=== PATIENT | male | born 1935 | race Caucasian/White ===

== ENCOUNTER 2019-05-21 06:50 | Inpatient (IN) ==
[2019-05-16 15:35] LABS: Appearance,Urine CLEAR; Bilirubin,Urine NEG (NEG); Color,Urine YELLOW; Culture Indicated,Urine NO; Glucose,Urine (UA) NEGATIVE (NEG); Ketones,Urine NEG (NEG); Leukocyte Esterase,Urine NEG /uL (NEG); Nitrate,Urine NEG (NEG); Protein,Urine NEG (NEG); Specific Gravity,Urine 1.017 (1.000-1.035); Urine Blood NEG mg/dL (<0.03); Urobilinogen,Urine NEG (NEG)
[2019-05-16 18:59] LABS: Basophils # (Auto) 0 K/mcL (0.0-0.3); Basophils % (Auto) 0.2 % (0.0-2.0); Eosinophils # (Auto) 0.4 K/mcL (0.0-0.7); Eosinophils % (Auto) 4.1 % (0.0-7.0); Granulocytes % (Auto) 62.7 % (38.0-78.0); Hematocrit 38.4 % (41.0-55.0); Hemoglobin 12.2 g/dL (13.5-16.5); Lymphocytes # (Auto) 2.3 K/mcL (1.5-4.8); Lymphocytes % (Auto) 21.9 % (15.5-49.0); Mean Cell Volume 101.6 fL (80.0-100.0); Mean Corpuscular HGB Conc 31.9 g/dL (31.0-36.0); Mean Platelet Volume 8.7 fL (7.4-10.4); Monocytes # (Auto) 1.2 K/mcL (0.1-0.9); Monocytes % (Auto) 11.1 % (1.0-12.0); Platelet Count 259 K/mcL (140-440); RBC 3.78 M/mcL (4.50-5.90); Red Cell Distribution Width 15.5 % (11.5-14.5); WBC 10.5 K/mcL (4.5-11.0)
[2019-05-16 19:00] LABS: Blood Urea Nitrogen 24 mg/dl (8-23); Calcium 9.4 mg/dl (8.6-10.4); Carbon Dioxide 25 mmol/L (22-30); Chloride 102 mmol/L (96-108); Glomerular Filtration Rate 51; Glucose 84 mg/dL (70-105)
[~2019-05-21 06:50] MED LIST: ACETAMINOPHEN 500 MG TABLET PO SCH; CELECOXIB 200 MG CAPSULE PO SCH; IPRATROPIUM/ALBUTEROL 3 ML AMPUL.NEB NEB PRN; PREGABALIN 75 MG CAPSULE PO SCH; SCOPOLAMINE 1 PATCH PATCH TOPICAL PRN; ceFAZolin 2 GM in DEXTROSE 5% IN WATER 50 ML IV SCH; oxyCODONE 10 MG TAB.ER.12H PO SCH
[2019-05-21] MEDS ORDERED: DEXAMETHASONE 10 MG/ML VIAL IV ONE (09:00)
[2019-05-21] MEDS ORDERED: LIDOCAINE HCL/PF 100 MG/5 ML SYRINGE IV ONE (09:00)
[2019-05-21] MEDS ORDERED: ePHEDrine 50 MG/ML AMPUL IV ONE (09:00)
[2019-05-21] MEDS ORDERED: fentaNYL 250 MCG/5 ML VIAL IV ONE (09:00)
[2019-05-21] MEDS ORDERED: ROPIVACAINE HCL/PF 30 ML VIAL IJ ONE (09:00)
[2019-05-21] MEDS ORDERED: PROPOFOL 200 MG/20 ML VIAL IV ONE (09:00)
[2019-05-21] MEDS ORDERED: SUCCINYLCHOLINE 20 MG/ML ML IV ONE (09:00)
[2019-05-21] MEDS ORDERED: TRANEXAMIC ACID 1,000 MG/10 ML VIAL IV ONE ×2 (09:00→10:11)
[2019-05-21] MEDS ORDERED: ONDANSETRON 4 MG/2 ML VIAL IV ONE (09:00)
[2019-05-21] MEDS ORDERED: fentaNYL 100 MCG/2 ML VIAL IV PRN (10:08)
[2019-05-21] MEDS ORDERED: NALOXONE HCL 0.4 MG/ML VIAL IV PRN (10:08)
[2019-05-21] MEDS ORDERED: PROMETHAZINE 25 MG/ML VIAL IV PRN (10:08)
[2019-05-21] MEDS ORDERED: LACTATED RINGERS 250 ML IV PRN (10:08)
[2019-05-21] MEDS ORDERED: diphenhydrAMINE 50 MG/ML VIAL IV PRN (10:08)
[2019-05-21] MEDS ORDERED: IPRATROPIUM/ALBUTEROL 3 ML AMPUL.NEB NEB PRN (10:08)
[2019-05-21] MEDS ORDERED: ONDANSETRON 4 MG/2 ML VIAL IV PRN ×2 (10:08→10:11)
[2019-05-21] MEDS ORDERED: MEPERIDINE 25 MG/ML SYRINGE IV PRN (10:08)
[2019-05-21] MEDS ORDERED: ACETAMINOPHEN 325 MG TABLET PO PRN (10:11)
[2019-05-21] MEDS ORDERED: BENZOCAINE/MENTHOL 1 LOZENGE PO PRN (10:11)
[2019-05-21] MEDS ORDERED: POLYETHYLENE GLYCOL 3350 17 GM PACKET PO PRN (10:11)
[2019-05-21] MEDS ORDERED: MAGNESIUM HYDROXIDE 30 ML ORAL.SUSP PO PRN (10:11)
[2019-05-21] MEDS ORDERED: FLEETS ADULT ENEMA PR PRN (10:11)
[2019-05-21] MEDS ORDERED: TEMAZEPAM 15 MG CAPSULE PO PRN (10:11)
[2019-05-21] MEDS ORDERED: BISACODYL 10 MG SUPP.RECT PR PRN (10:11)
[2019-05-21] MEDS ORDERED: HYDROmorphone 2 MG/ML VIAL IV PRN (10:11)
[2019-05-21] MEDS ORDERED: LACTATED RINGERS 1,000 ML IV SCH (10:15)
--- NOTE | 2019-05-21 10:46 | Operative Note ---
DATE OF OPERATION: 05/21/2019 PREOPERATIVE DIAGNOSIS: Left shoulder rotator cuff arthropathy with severe degenerative arthritis of left shoulder. 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 PROCEDURE: Left reverse total shoulder. SURGEON: Tejinder Hernandez M.D. APPAREL DESIGNER: Tim Bauer PA-C. The PA's assistance was required for the safe and efficient completion of the entire case. This provider's expertise and technical skill were required throughout the case. The PA assisted with preoperative coordination, intraoperative retraction, wound closure, dressing and splint application, as well as postoperative documentation and care coordination. ANESTHESIA: General LMA anesthesia. COMPLICATIONS: None. IMPLANTS: Hanna components. ESTIMATED BLOOD LOSS: Blood loss about 50 mL. INDICATION FOR SURGERY: The patient is a very pleasant 84-year-old who failed all conservative care. He has had multiple injections, as well as anti-inflammatories, including ibuprofen and Aleve without resolution. He wakes up at night. He cannot raise his hand above his head. For this reason and instability of the shoulder, we have elected to proceed with the surgery, failing all conservative courses with exercise and home therapy. DESCRIPTION OF PROCEDURE: The patient was brought to the operating room and put to sleep with general LMA anesthesia. Once asleep, the patient had a timeout. We confirmed the operative site as the left arm by initials, consent form, and x-rays. Preop antibiotics with Ancef and tranexamic acid were confirmed given. Ioban had been placed over the skin. We made a deltopectoral approach to the shoulder and this exposed the shoulder capsule anteriorly. We released the subscap and the remnants of the biceps tendon. The humeral head was then subluxed releasing spurs inferiorly. We then were able to make the neck cut at 20 degrees of retroversion at its anatomical neck region. We placed a protective plate on the humeral head and this was subluxed posteriorly. Retractors were placed around the glenoid. We removed the remnants of what was the biceps tendon. Severe arthritis was encountered, and we removed spurs. We released the capsule inferiorly and anteriorly and a 360-degree capsular release was accomplished. We placed the pin centrally and then reamed up to the size 40. We reamed so the inferior 50% was bleeding bone. We placed a metaglene into place with a central screw measuring 36 mm and then we placed peripheral screws measuring 40 and two 36 mm screws with excellent purchase of all. We then placed a 40 mm glenosphere with 2 mm of eccentricity and 2 mm of offset. Once in place, we were able to broach up to the size 12 stem. We trialed this size stem with a standard-thickness poly. This was able to be reduced back into the joint giving full range of motion and excellent tension. We irrigated thoroughly and replaced the stem with a 12 mm stem with some cement with antibiotics in it distally to prevent failure to ingrow as he is on methotrexate for his arthritis which prevents healing. To fix this temporarily, the cement will accomplish this with antibiotics as well. Once in place, this fit very nicely. We then placed a standard-thickness polyethylene. This was reduced, giving excellent stability and range of motion afterwards. We irrigated and closed the interval with 2-0 Vicryl and closed the skin with 2-0 Vicryl and adhesive closure. The patient tolerated this well without complication. Sterile bandage applied. A Donjoy sling was fitted and given to the patient. NABIL:[email or web address] Job ID: [id number] Doc ID: [id number] Tejinder Hernandez MD
[2019-05-21] MEDS ORDERED: GENTAMICIN SULFATE 800 MG/20 ML VIAL IR ONE (11:05)
--- NOTE | 2019-05-21 11:36 | XRay Report ---
HISTORY: Postop left shoulder arthroplasty FINDINGS: There is a well-positioned left total shoulder prosthesis. No fractures present. The acromioclavicular joint is widened 1.4 cm. There are no abnormal soft tissue calcifications. IMPRESSION: Well-positioned reverse shoulder prosthesis Interpreted and Authenticated by: Yamil Shook 05/21/19
[2019-05-21] MEDS: LACTATED RINGERS 1,000 ML IV SCH ×2 (11:53→21:42)
[2019-05-21] MEDS: 0.9 % SODIUM CHLORIDE 10 ML SYRINGE IV SCH ×2 (17:17→21:43)
[2019-05-21] MEDS: ceFAZolin 1 GM VIAL IV SCH (17:47)
[2019-05-21] MEDS ORDERED: SENNOSIDES 1 TABLET PO SCH (21:00)
[2019-05-21] MEDS ORDERED: LATANOPROST OPHTH DROPS 2.5ML BOTTLE OU SCH (21:00)
[2019-05-21] MEDS: ACETAMINOPHEN W/CODEINE #3 1 TABLET PO PRN (21:43)
[2019-05-21] MEDS: BRIMONIDINE OPHTH DROPS 1 GTT BOTTLE 5ML OU SCH (21:43)
[2019-05-21] MEDS: DOCUSATE SODIUM 100 MG CAPSULE PO SCH (21:43)
[2019-05-22] MEDS: ceFAZolin 1 GM VIAL IV SCH
[2019-05-22] MEDS: 0.9 % SODIUM CHLORIDE 10 ML SYRINGE IV SCH (04:29)
[2019-05-22] MEDS: LACTATED RINGERS 1,000 ML IV SCH (04:30)
[2019-05-22] MEDS: ACETAMINOPHEN W/CODEINE #3 1 TABLET PO PRN ×2 (05:20→09:01)
[2019-05-22] MEDS ORDERED: OMEPRAZOLE 20 MG CAPSULE PO SCH (07:30)
--- NOTE | 2019-05-22 07:30 | Orthopedic Progress Note ---
Subjective Patient information: Note initiated : 05/22/19 at 7:29 am Service Date, if different from initiated Date: [] Patient: Toy Watkins 84 y/o M admitted on 05/21/19 for Left Reverse Total Shoulder Arthroplasty. Chief Complaint: [Pt is stable this morning on post operative day 1 without any significant concerns or complaints. Patients vital signs have remained stable. Patients dressing is dry and is grossly intact from a neurovascular and motor standpoint. Patients 10 point ROS is otherwise negative. ] Objective Vital signs: Vital Signs Temp Pulse Resp BP Pulse Ox 05/22/19 07:08 98.4 F 81 18 97/58 95 05/22/19 04:20 97.8 F 83 18 94/62 95 05/22/19 00:08 70 05/22/19 00:00 97.8 F 70 18 95/57 92 05/21/19 21:42 85 05/21/19 19:33 97.6 F 85 20 100/62 92 05/21/19 18:00 93 H 05/21/19 15:28 97.3 F 93 H 16 122/74 95 05/21/19 15:15 97.3 F 97 H 18 120/76 94 05/21/19 14:45 97.6 F 94 H 16 118/74 94 05/21/19 14:11 91 H 05/21/19 12:18 91 H 110/82 91 05/21/19 12:03 86 96 05/21/19 12:00 91 H 93 05/21/19 11:47 92 H 143/91 96 05/21/19 11:32 97.3 F 91 H 16 140/98 95 05/21/19 11:16 97.8 F 91 H 12 154/64 97 05/21/19 11:00 98.2 F 93 H 16 137/100 98 05/21/19 10:45 97.6 F 86 16 150/94 96 05/21/19 10:30 97.1 F 85 14 141/99 97 Intake and Output 05/21/19 05/22/19 05/22/19 21:59 05:59 13:59 Intake Total 2222 1053 Output Total 250 575 150 Balance 1972 478 -150 Intake: IV 1032 678 Lactated Ringers 1,000 ml @ 100 982 678 mls/hr IV .Q10H DAVI Rx#: [id number] Ancef 2 gm In Dextrose 5% in 50 Water 50 ml @ 100 mls/hr IV PREOP DAVI Rx#:[id number] Oral [id number] Output: Void Amount 250 575 150 Other: Meal Dinner Percent of Meal Consumed 50% Feeding Ability Independent Urine Appearance Clear Urine Color Bright Yellow Straw Urine Odor Normal Weight 201 lb 8 oz Intake & Output: Intake & Output 05/21/19 05/22/19 05/22/19 21:59 05:59 13:59 Intake Total 2222 1053 Output Total 250 575 150 Balance 1972 478 -150 Weight 201 lb 8 oz Intake: IV 1032 678 Lactated Ringers 1,000 ml @ 100 982 678 mls/hr IV .Q10H DAVI Rx#: [id number] Ancef 2 gm In Dextrose 5% in 50 Water 50 ml @ 100 mls/hr IV PREOP DAVI Rx#:[id number] Oral [id number] Output: Void Amount 250 575 150 Other: Meal Dinner Percent of Meal Consumed 50% Feeding Ability Independent Urine Appearance Clear Urine Color Bright Yellow Straw Urine Odor Normal Incision: Yes healing Incision clean and dry: Yes Dressing: Yes clean Weight bearing status: full Neurological exam IM: Yes motor sensory intact, Yes neurovascular intact Extremities exam IM: Yes neurovascular intact - Labs CBC & BMP: 05/16/19 13:47 05/16/19 13:47 Labs: Orthopedic Labs 05/16/19 13:47 APTT 29 05/16/19 13:47 Hgb 12.2 L Hct 38.4 L Assessment and Plan (1) History of reverse total replacement of left shoulder joint The patient has been educated regarding dressing care, Physical Therapy recommendations, home exercises, restrictions, and follow up appointments. The patient has had all necessary DME prescribed. The patient has remained relatively stable during their hospital course. Leave Dermabond patch intact un til followup Status: Acute (2) History of reverse total replacement of left shoulder joint Status: Acute
--- NOTE | 2019-05-22 07:33 | Discharge Summary ---
Ortho Discharge - TSA - Patient Instructions Diet: Regular Diet Activity: activity as tolerated, weight bearing as tolerated Total Shoulder Protocol: Leave immobilizer in place except for bathing and ROM. Abduction pillow. Continue to wear sling until seen by physician. Codman Pendulum : These exercises use momentum produced by your body to move your shoulder joint. Bend your knees and shift your weight to your front leg, then back, allowing your arm to swing in the same directions. Using the same technique, alternately shift your weight between your right and left legs, allowing your arm to swing from side to side. These exercises are also performed in counterclockwise and clockwise circular motions. Typically these exercises are performed several times per day, for a set number repetitions or minutes, such as 20 times in a row or 5 minutes at a time. Dressing Care: May shower in 2 days - Problem Maintenance (1) History of reverse total replacement of left shoulder joint Status: Acute (2) History of reverse total replacement of left shoulder joint Status: Acute - Follow Up Plan Follow Up Appointments: Tim Bauer PA-C [[facility]] - 06/05/19 10:40 am Disposition: Home, Self-Care Prognosis: Good Rehab Potential: Good I certify that the patient requires SNF services: No Overall status at discharge: patient is progressing back to baseline - Orders For Discharge Prescriptions: Docusate Sodium [Colace] 100 mg PO BID #60 cap Transmission Status: Pending to [id number] Acetaminophen W/Codeine #3 [Tylenol #3] 1 - 2 tab PO Q4HP PRN #75 tab PRN Reason: Pain Level 3-6 Prescription Printed
[2019-05-22] MEDS ORDERED: MAGNESIUM OXIDE 400 MG TABLET PO SCH (09:00)
[2019-05-22] MEDS ORDERED: CITALOPRAM 20 MG TABLET PO SCH (09:00)
[2019-05-22] MEDS ORDERED: VITAMIN D3 1,000 UNIT TABLET PO SCH (09:00)
[2019-05-22] MEDS ORDERED: ATORVASTATIN 40 MG TABLET PO SCH (09:00)
[2019-05-22] MEDS ORDERED: TIMOLOL 0.25% OPHTH DROPS BOTTLE 5ML OU SCH (09:00)
[2019-05-22] MEDS: DOCUSATE SODIUM 100 MG CAPSULE PO SCH (09:01)
[2019-05-22] MEDS: BRIMONIDINE OPHTH DROPS 1 GTT BOTTLE 5ML OU SCH (09:05)
== END 2019-05-22 12:53 | disposition home or self-care (01) | DRG 483 ==
LOC: MEDSUR 06:50
PROVIDERS: ADMIT Orthopaedic Surgery; ATTEND Orthopaedic Surgery